=== PATIENT | female | born 1995 | race Caucasian/White ===

== ENCOUNTER 2019-02-28 19:00 | Emergency (ER) | payer OTHER ==
[~2019-02-28] VITALS: Ht 165.1 cm; Wt 140.6 kg
[2019-02-28 19:30] VITALS: BP 157/88
--- NOTE | 2019-02-28 19:33 | NUR ---
TO LOBBY A/W BED , AMBULATORY
--- NOTE | 2019-02-28 21:00 | NUR ---
PT C/O RT POINTER FINGER PAIN S/P JAMMING FINGER AGAINST WALL AT 1750 TODAY. +CMS. SWELLING TO RT POINTER FINGER, NO BRUISING NOTED. PT HAS NOT TAKEN ANY MEDICATIONS FOR PAIN TODAY. LMP 10/31/18. PT SITTING IN BED CALM AND PLEASANT. VSS MEDHX: PREDIABETIC (METFORMIN) ALLERGIES: DENIES
--- NOTE | 2019-02-28 21:20 | NUR ---
FROG FINGER SPLINT PLACED ON PT R 2ND DIGIT
[2019-02-28 21:21] VITALS: BP 157/88
--- NOTE | 2019-02-28 21:22 | NUR ---
Patient discharged with v/s stable. Written and verbal after care instructions given and explained. Patient alert, oriented and verbalized understanding of instructions. Ambulatory with steady gait. All questions addressed prior to discharge. ID band removed. Patient advised to follow up with PMD. Rx of NAPROSYN 500MG given. Patient educated on indication of medication including possible reaction and side effects. Opportunity to ask questions provided and answered. DISCHARGED BY DR. MERINO
== END 2019-02-28 21:22 | disposition home or self-care (01) ==
LOC: MED 19:00
DX: S60.021A Contusion of right index finger without damage to nail, initial encounter (principal); W22.8XXA Striking against or struck by other objects, initial encounter; Y93.89 Activity, other specified; Y92.89 Other specified places as the place of occurrence of the external cause; Y99.8 Other external cause status
CPT/HCPCS: 73140; 99283

== ENCOUNTER 2020-01-01 12:48 | Emergency (ER) | payer OTHER ==
[~2020-01-01] VITALS: Ht 165.1 cm; Wt 145.1 kg
[2020-01-01 12:59] VITALS: BP 150/94
--- NOTE | 2020-01-01 13:52 | NUR ---
AMB TO BED 8
[2020-01-01 14:02] LABS: BASOPHILS % (AUTO) 0.2 % (0.0-2.0); EOSINOPHILS # (AUTO) 0.1 K/uL (0-0.4); EOSINOPHILS % (AUTO) 0.9 % (0.0-4.0); HEMATOCRIT 41.3 % (36-48); HEMOGLOBIN 13.8 g/dL (12.0-16.0); LYMPHOCYTES # (AUTO) 2.6 K/uL (2.5-16.5); MEAN CORPUSCULAR HEMOGLOBIN 29 pg (27-31); MEAN CORPUSCULAR HGB CONC 33 g/dL (33-37); MEAN CORPUSCULAR VOLUME 85.5 fL (80-94); MONOCYTES # (AUTO) 0.4 K/uL (0.8-1.0); MONOCYTES % (AUTO) 4.3 % (1.7-9.3); NEUTROPHILS # (AUTO) 6.2 K/uL (1.8-7.7); NEUTROPHILS % (AUTO) 66.6 % (42.2-75.2); PLATELET COUNT (AUTO) 334 K/uL (140-450); RED BLOOD CELL COUNT(AUTO) 4.83 MIL/uL (4.20-5.40); RED CELL DISTRIBUTION WIDTH 13.1 % (11.6-13.7); WHITE BLOOD COUNT (AUTO) 9.3 K/uL (4.8-10.8)
--- NOTE | 2020-01-01 14:10 | NUR ---
C/O INTERMITTENT ATYPICAL CP X 2 DAYS PT STATES 1 EPISODE OF EPITAXIS DENIES SOB, BLURRY VISION, AB PAIN, OR N/V/D PMH- PREDIABETIC RX- METFORMIN BUT RAN OUT
--- NOTE | 2020-01-01 14:11 | NUR ---
PTS HR TACHY AT 117 IN TRIAGE.
--- NOTE | 2020-01-01 14:11 | NUR ---
PT CALM IN APPEARANCE, NO DISTRESS NTOED. TACHYCARDIA. RR EVEN AND UNLABORED.
--- NOTE | 2020-01-01 14:15 | NUR ---
PT PROVIDING URINE
--- NOTE | 2020-01-01 14:22 | NUR ---
NEGATIVE , LAB COLLECTED PRIOR TO PT BEING PALCED IN BED
[2020-01-01 14:35] LABS: ALBUMIN 3.9 g/dL (3.4-5.0); ANION GAP 11.8 (8-16); CARBON DIOXIDE 28.2 mmol/L (21-32); CREATININE 0.8 mg/dL (0.6-1.3); THYROID STIMULATING HORMONE 2.39 uIU/mL (0.34-3.74); TOTAL BILIRUBIN 0.3 mg/dL (0.0-1.0)
[2020-01-01 15:17] VITALS: BP 143/87
--- NOTE | 2020-01-01 15:17 | NUR ---
Patient discharged with v/s stable. Written and verbal after care instructions given and explained. Patient alert, oriented and verbalized understanding of instructions. Ambulatory with steady gait. All questions addressed prior to discharge. ID band removed. Patient advised to follow up with PMD. Rx of METFORMIN given. Patient educated on indication of medication including possible reaction and side effects. Opportunity to ask questions provided and answered.
== END 2020-01-01 15:17 | disposition home or self-care (01) ==
LOC: MED 12:48
DX: R00.2 Palpitations (principal)
CPT/HCPCS: 36415; 80053; 81025; 84443; 84484; 85025; 93005; 99284

== ENCOUNTER 2020-06-25 12:04 | Day surgery (SDC) | payer OTHER, SELFPAY ==
[~2020-06-25] VITALS: Ht 165.1 cm; Wt 130.6 kg
[2020-06-25] MEDS ORDERED: MIDAZOLAM 5 MG/5 ML VIAL ONE (12:34)
[2020-06-25] MEDS ORDERED: diphenhydrAMINE 50 MG/ML VIAL ONE (12:34)
[2020-06-25] MEDS ORDERED: fentaNYL citrate 0.05 MG/ML VIAL ONE (12:34)
[2020-06-25] MEDS ORDERED: MIDAZOLAM 2 MG/2 ML VIAL IVP ONE (15:15)
[2020-06-25] MEDS ORDERED: fentaNYL citrate 0.05 MG/ML VIAL IVP ONE (15:15)
== END 2020-06-25 15:00 | disposition home or self-care (01) ==
LOC: MDS 12:04 → MFCC 12:05 → MDS 15:00
PROVIDERS: ATTEND Internal Medicine Gastroenterology
DX: R10.13 Epigastric pain (principal); R79.89 Other specified abnormal findings of blood chemistry; K44.9 Diaphragmatic hernia without obstruction or gangrene; K76.0 Fatty (change of) liver, not elsewhere classified; E11.9 Type 2 diabetes mellitus without complications; E66.9 Obesity, unspecified; Z79.84 Long term (current) use of oral hypoglycemic drugs; Z79.899 Other long term (current) drug therapy; Z20.828 Contact with and (suspected) exposure to other viral communicable diseases
CPT/HCPCS: 43235; 81025; J2250; J3010; U0003; J1200